=== PATIENT | female | born 1960 | race Caucasian/White ===

== ENCOUNTER → 2016-11-20 | Outpatient (CLI) | payer BC ==
[~2016-11-20] MED LIST: AMOXICILLIN500 M1 PO; SYNTHROID112 MCG PO
--- NOTE | ~2016-11-20 | MY30 ---
[facility] A Service of [facility] RADIOLOGY TEXT RESULTS PATIENT: MONICO HAMILTON LOCATION: [facility] : 58 UNIT #: [id number] AGE: [address]: Tiffanie Beth MD SEX: F ORDER DR: [id number] [address] [address] [id number] O MR#: [id number] Acc #: [id number] NAME: MONICO HAMILTON. : 1960 SEX: F STUDY DATE/TIME: 11/20/2016 10:00 UNIT: [facility] ROOM: STUDY DESCRIPTION: MY SCREEN DAVONTE BILAT DIGITAL Attending Physician: Tiffanie Beth M.D. Referring Physician: Tiffanie Beth M.D. Ordering Physician: Tiffanie Beth M.D. Primary Care Physician: Tiffanie Beth M.D. MEDICAL IMAGING REPORT This report is preliminary unless electronic signature is present. EXAM Bilateral digital screening with CAD. INDICATIONS Routine screening. No current complaints. Family history of breast cancer in aunt. COMPARISON 03/01/2015 and 08/13/2011. FINDINGS MLO and CC digital views of each breast were obtained. There is also an exaggerated lateral CC view of the right breast. The study was reviewed with a FDA-approved CAD device. The breasts are extremely dense. There are no masses or abnormal calcifications. IMPRESSION No change and no evidence of malignancy. Patients over the age of 40 are entered into a reminder system with target due date for the next mammogram. A result letter will also be sent to the patient. BIRADS: 1 Negative. Dictated by... Livan Palacios M.D. THIS IS AN ELECTRONICALLY VERIFIED REPORT Livan Palacios M.D. at 11/20/2016 3:10 PM FEL/pc [facility] A Service [facility] RADIOLOGY TEXT RESULTS PATIENT: MONICO HAMILTON LOCATION: [facility] : 58 UNIT #: [id number] AGE: [address]: Tiffanie Beth MD SEX: F ORDER DR: TD: 11/20/2016 14:18 JOB #: [id number] MEDICAL IMAGING REPORT Page 1 of 1
== END | disposition home or self-care (01) ==
LOC: SMAM 09:22
DX: Z12.31 Encounter for screening mammogram for malignant neoplasm of breast (principal); Z80.3 Family history of malignant neoplasm of breast
CPT/HCPCS: G0202